=== PATIENT | male | born 1995 | race Two or more races ===

== ENCOUNTER 2020-10-07 18:59 | Emergency (ER) | payer OTHER ==
[~2020-10-07] VITALS: Ht 177.8 cm; Wt 95.3 kg
--- NOTE | 2020-10-07 19:38 | NUR ---
Called patient's sister Matilde, , no answer, left message.
--- NOTE | 2020-10-07 19:49 | NUR ---
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
--- NOTE | 2020-10-07 19:50 | NUR ---
PT IS IN ROOM #2A. DR HOBSON EVALUATED THE PT.
[2020-10-07] MEDS ORDERED: levETIRAcetam IV 1,000 MG in IV DEXTROSE 5% 100 ML IV ONE (20:00)
[2020-10-07 20:05] LABS: HEMATOCRIT 43.5 % (36.7-47.1); MEAN CORPUSCULAR HEMOGLOBIN 30.9 uug (23.8-33.4); MEAN CORPUSCULAR VOLUME 93.8 fL (73.0-96.2); PLATELET COUNT (AUTO) 277 K/uL (152-348)
[2020-10-07] MEDS ORDERED: levETIRAcetam 500 MG/5 ML VIAL IV ONE (20:06)
[2020-10-07 20:09] LABS: CARBON DIOXIDE 16 mmol/L (21-32); CHLORIDE 102 mmol/L (98-107); CREATININE 1.6 mg/dL (0.6-1.3); GLUCOSE 123 mg/dL (74-106); POTASSIUM 3.1 mmol/L (3.5-5.1); UREA NITROGEN, BLOOD 15 mg/dL (7-18)
[2020-10-07 20:10] LABS: ETHANOL < 3 MG/DL (0-0)
[2020-10-07 20:15] LABS: ALANINE AMINOTRANSFERASE 26 U/L (16-63); ALKALINE PHOSPHATASE 86 U/L (50-136); ASPARTATE AMINOTRANSFERASE 24 U/L (15-37); BILIRUBIN,DIRECT 0.2 mg/dL (0.0-0.2); BILIRUBIN,TOTAL 0.8 mg/dL (0.2-1.0); TOTAL PROTEIN, SERUM 8.8 g/dL (6.4-8.2)
[2020-10-07] MEDS ORDERED: LEVE500T20 PO (20:54)
[2020-10-07] MEDS ORDERED: POTASSIUM CHLORIDE 20 MEQ TAB.PRT.SR PO ONE (21:00)
[2020-10-07] MEDS ORDERED: POTASSIUM CHLORIDE 20 MEQ TAB.PRT.SR ONE (21:41)
--- NOTE | 2020-10-07 21:53 | NUR ---
PT WAS D/C'd TO HOME. D/C INSTRUCTIONS GIVEN TO THE PT BY DR HOBSON.
[2020-10-07 21:54] VITALS: BP 136/72
== END 2020-10-07 21:55 | disposition home or self-care (01) ==
LOC: ER 19:02
DX: G40.909 Epilepsy, unspecified, not intractable, without status epilepticus (principal); R94.31 Abnormal electrocardiogram [ECG] [EKG]; Z95.810 Presence of automatic (implantable) cardiac defibrillator; Z91.14 Patient's other noncompliance with medication regimen; Z79.899 Other long term (current) drug therapy; E87.6 Hypokalemia
CPT/HCPCS: 36415; 80048; 80076; 80320; 82962; 85025; 93005; 96365; 99284; J1953; A4663; G0480; J3490; J7030